=== PATIENT | female | born 1950 | race Caucasian/White ===

== ENCOUNTER 2016-04-25 06:36 | Inpatient (IN) | payer MEDICARE, BC ==
[~2016-04-25] VITALS: Ht 165.1 cm; Wt 93.0 kg
[~2016-04-25 06:36] MED LIST: HYDR10TA14 PO; LEVO112T2 PO; LOVA40TA2 PO
[2016-04-25] MEDS: NORMAL SALINE IV SCH ×5 (06:45→11:47)
[2016-04-25] MEDS ORDERED: CEFTRIAXONE 1GM IVPB FOR OMNI 50 ML IV ONE (07:15)
[2016-04-25] MEDS ORDERED: ACETAMINOPHEN 500 MG TABLET PO ONE (07:15)
[2016-04-25] MEDS ORDERED: VANCOMYCIN PER PHARMACY MC PRN (07:15)
[2016-04-25 07:19] LABS: BASO % 0 % (0-3); EOS % 2 % (0-3); HEMATOCRIT 48.9 % (36.0-47.0); HEMOGLOBIN 16.2 g/dL (12.0-15.5); LYMPH # 1.5 x10^3/uL (1.0-4.8); LYMPH % 12 % (24-48); MEAN CORPUSCULAR HEMOGLOBIN 31 pg (25-35); MEAN CORPUSCULAR HGB CONC 33 g/dL (31-37); MEAN CORPUSCULAR VOLUME 94 fL (79-100); MONO % 5 % (0-9); NEUT % 81 % (31-73); PLATELET COUNT 233 x10^3/uL (140-400); RED BLOOD COUNT 5.19 x10^6/uL (3.50-5.40); WHITE BLOOD COUNT 12.4 x10^3/uL (4.0-11.0)
--- NOTE | 2016-04-25 07:24 | PHYS DOC ---
Past Medical History Past Medical History: High Cholesterol, Hypertension, Hypothyroid, Renal Disease Additional Past Medical Histor: pituitary tumor Past Surgical History: Other Additional Past Surgical Histo: pituitary gland tumor removal Alcohol Use: None Drug Use: None Adult General Chief Complaint Chief Complaint: WEAKNESS/GENERALIZED HPI HPI Patient is a 66 year old female who presents with general weakness, vomiting, disorientation. Patient's contributes to history. She reports last night she started vomiting about 9 PM. She has been generally weak since then, and disoriented. He says the disorientation is common when she gets sick like this, and has happened multiple times in the past. She has not taken anything at home for symptoms. She denies any pain anywhere. She otherwise denies any acute complaints. Review of Systems Review of Systems ROS limited by disorientation Constitutional: General weakness, fever Respiratory: Denies cough or shortness of breath Cardiovascular: Denies chest pain GI: Nausea, vomiting. Denies abdominal pain, diarrhea Musculoskeletal: Denies back pain or joint pain Neurologic: Denies headache, focal weakness or sensory changes Current Medications Current Medications Current Medications Medications (Trade) Dose Ordered Sig/Vik Start Time Stop Time Status Last Admin Dose Admin Acetaminophen (Tylenol) 1,000 mg 1X ONCE 04/25/16 07:15 04/25/16 07:16 DC 04/25/16 07:15 1,000 MG Ceftriaxone Sodium 50 ml @ 100 mls/hr 1X ONCE 04/25/16 07:15 04/25/16 07:44 DC 04/25/16 07:16 100 MLS/HR Ondansetron HCl (Zofran) 4 mg 1X ONCE 04/25/16 07:30 04/25/16 07:31 DC Sodium Chloride (Iv Sodium Chloride 0.9% 1000ml Bag) 2,460 ml @ 2,460 mls/hr Q1H 04/25/16 07:00 04/25/16 07:15 2,460 MLS/HR Vancomycin HCl 1 each 1 each PRN DAILY PRN 04/25/16 07:15 UNV Vancomycin HCl/ Sodium Chloride (Iv Sodium Chloride 0.9% 500ml Bag) 500 ml @ 250 mls/hr 1X ONCE 04/25/16 08:00 04/25/16 09:59 Allergies Allergies Allergies Coded Allergies Type Severity Reaction Last Updated Verified No Known Drug Allergies 03/06/13 No Physical Exam Physical Exam Constitutional: Well developed, well nourished, non-toxic appearance HENT: Normocephalic, atraumatic, bilateral external ears normal Eyes: PERRL, EOMI, conjunctiva normal, no discharge Neck: Normal range of motion, no stridor, supple, negative [place]ern[place] and [place] Cardiovascular: Tachycardic, regular rhythm, no murmur Lungs & Thorax: Bilateral breath sounds clear to auscultation Abdomen: Bowel sounds normal, soft, non-distended, no TTP Skin: Hot to touch, dry, no erythema, no rash Extremities: No obvious deformity, no edema Neurologic: Alert and oriented to person and place only, GCS 14, CN II-XII grossly intact, strength symmetrical throughout, sensation to light touch intact throughout Current Patient Data Vital Signs Vital Signs Date Time Temp Pulse Resp B/P Pulse Ox O2 Delivery O2 Flow Rate FiO2 04/25/16 06:45 103.2 107 36 138/69 93 Room Air 103.2 Lab Values Laboratory Tests Test 04/25/16 06:55 04/25/16 07:10 Influenza Type A Antigen Negative (NEGATIVE) Influenza Type B Antigen Negative (NEGATIVE) White Blood Count 12.4x10^3/uL (4.0-11.0) H Red Blood Count 5.19x10^6/uL (3.50-5.40) Hemoglobin 16.2g/dL (12.0-15.5) H Hematocrit 48.9% (36.0-47.0) H Mean Corpuscular Volume 94fL (79-100) Mean Corpuscular Hemoglobin 31pg (25-35) Mean Corpuscular Hemoglobin Concent 33g/dL (31-37) Red Cell Distribution Width 13.0% (11.5-14.5) Platelet Count 233x10^3/uL (140-400) Neutrophils (%) (Auto) 81% (31-73) H Lymphocytes (%) (Auto) 12% (24-48) L Monocytes (%) (Auto) 5% (0-9) Eosinophils (%) (Auto) 2% (0-3) Basophils (%) (Auto) 0% (0-3) Neutrophils # (Auto) 10.0x10^3uL (1.8-7.7) H Lymphocytes # (Auto) 1.5x10^3/uL (1.0-4.8) Monocytes # (Auto) 0.6x10^3/uL (0.0-1.1) Eosinophils # (Auto) 0.3x10^3/uL (0.0-0.7) Basophils # (Auto) 0.0x10^3/uL (0.0-0.2) Sodium Level 144mmol/L (136-145) Potassium Level 3.5mmol/L (3.5-5.1) Chloride Level 106mmol/L (98-107) Carbon Dioxide Level 27mmol/L (21-32) Anion Gap 11 (6-14) Blood Urea Nitrogen 21mg/dL (7-20) H Creatinine 1.5mg/dL (0.6-1.0) H Estimated GFR (Cockcroft-Gault) 34.9 BUN/Creatinine Ratio 14 (6-20) Glucose Level 98mg/dL (70-99) Calcium Level 8.7mg/dL (8.5-10.1) Total Bilirubin 0.7mg/dL (0.2-1.0) Aspartate Amino Transferase (AST) 19U/L (15-37) Alanine Aminotransferase (ALT) 21U/L (14-59) Alkaline Phosphatase 89U/L (46-116) Total Protein 6.9g/dL (6.4-8.2) Albumin 3.3g/dL (3.4-5.0) L Albumin/Globulin Ratio 0.9 (1.0-1.7) L Laboratory Tests 04/25/16 07:10 Laboratory Tests 04/25/16 07:10 EKG EKG EKG (my read): sinus tachycardia, rate 115, normal axis, nonspecific ST changes Radiology/Procedures Radiology/Procedures CXR: IMPRESSION: No acute cardiopulmonary abnormality is detected. Course & Med Decision Making Course & Med Decision Making Pertinent Labs and Imaging studies reviewed. (See chart for details) Patient is 66 year old female who presents with fever and AMS. No clear source of infection on physical exam, however will cover empirically with abx. Will check EKG, CXR, labs, UA to evaluate. Sepsis dose fluids and zofran ordered. CXR results as above. Labs notable for mild leukocytosis. UA still pending. Discussed with Dr. Hammer, will admit under her care for further evaluation and treatment. Dragon Disclaimer Dragon Disclaimer This electronic medical record was generated, in whole or in part, using a voice recognition dictation system. Departure Departure Impression: Primary Impression: Altered mental status Additional Impression: SIRS (systemic inflammatory response syndrome) Disposition: 09 ADMITTED INPATIENT Admitting Physician: Thu Hammer Condition: GUARDED Referrals: RIA CLINE (PCP) Problem Qualifiers LUCILA NEWMAN MD Apr 25, 2016 07:24
[2016-04-25 07:25] LABS: OBC FLU VALID
--- NOTE | 2016-04-25 07:28 | RAD ---
Portable chest, 04/25/2016: History: Fever Comparison is made to a study from 03/06/2013. The heart size and pulmonary vascularity are normal. There is calcific plaquing of the aorta. No pulmonary infiltrates are seen. There is no evidence of pleural fluid. IMPRESSION: No acute cardiopulmonary abnormality is detected.
[2016-04-25] MEDS ORDERED: ONDANSETRON PF 4 MG/2 ML VIAL. IV ONE (07:30)
[2016-04-25 07:32] LABS: CALCIUM 8.7 mg/dL (8.5-10.1); CREATININE 1.5 mg/dL (0.6-1.0); GFR 34.9; POTASSIUM 3.5 mmol/L (3.5-5.1)
[2016-04-25 07:38] LABS: ALBUMIN 3.3 g/dL (3.4-5.0); ALBUMIN/GLOBULIN RATIO 0.9 (1.0-1.7); TOTAL BILIRUBIN 0.7 mg/dL (0.2-1.0); TOTAL PROTEIN 6.9 g/dL (6.4-8.2)
[2016-04-25] MEDS ORDERED: VANCOMYCIN 2 GM in IV NORMAL SALINE 500ML BAG 500 ML IV ONE (08:00)
[2016-04-25] MEDS ORDERED: ONDANSETRON PF 4 MG/2 ML VIAL. IV PRN ×2 (08:00→09:30)
--- NOTE | 2016-04-25 08:13 | ACF ---
Admission Forms Criteria MENTAL STATUS CHANGE Clinical Indications for Inpatient Care (Place 'X' for any and all applicable criteria): Ongoing inpatient care may be needed for ANY ONE of the following(1)(2)(3)(5)(6) : [X]I. Suspected serious etiology (eg, medical disorder, INVENTORY CHECKER event) of mental status change [ ]II. Danger to self or others not manageable at lower level of care [ ]III. Grave disability (eg, inability to perform self care necessary at lower level of care) [ ]IV. Agitation or inappropriate behavior interfering with care for primary condition (eg, attempting to discontinue lines or drains prematurely, unable to cooperate with respiratory care) [ ]V. Delirium [A] [D][E] as described by ANY ONE of the following(26): [ ]a) Delirium due to alcohol or sedative [F] withdrawal [ ]b) Delirium of uncertain etiology that has not responded to appropriate empiric treatment [ ]c) Delirium that prevents performance of a life-sustaining function (eg, feeding or hydrating oneself) [ ]. General contraindications and/or Inappropriate clinical situations for Observational Care in patients with Mental Status Change, when ANY ONE of the following is required: [ ]a) Prediction of prolongation of LOS based on ANY ONE of the following may be considered as a contraindication for observational care 2, 3, 4, 5, 6, 7, 8, 9, 10, 11 [ ]i) Age > 65 yrs. [ ]ii) Patient arriving by ambulance [ ]iii) Patient with high acuity [ ]iv) Patient requiring vital sign monitoring [ ]v) Patient on IV medication [ ]b) Systolic blood pressures 180mmHg 3,12 [ ]c) Patient with altered mental status including delirium and other alteration of consciousness, (3) [ ]d) Patient whose discharge disposition will be to a [facility] home or rehabilitation home should not be managed in Emergency Department Observation Unit. CMS rule requires 3 days hospital stay before such placement.3,13 [ ]e) Patient with failure to thrive due to broad array of etiologies 3,16,17 [ ]f) Inability to ambulate 3,14 Extended stay beyond goal length of stay for the primary condition may be needed until ALL of the following are present(3)(5): [ ]a) Underlying medical etiology of mental status change is absent, or has been established and adequately treated [ ]b) Danger to self or others is absent or manageable at lower level of care. [ ]c) Behavior crisis management, including physical or chemical restraints, is not required or available at lower level of car [ ]d) Substance or alcohol withdrawal is absent or manageable at lower level of care. [ ]e) Behavioral symptoms (eg, agitation, somnolence, inappropriate behavior) are absent, or are manageable at lower level of care. The original [facility] content created by [facility] has been revised. The portions of the content which have been revised are identified through the use of italic text or in bold, and [facility] has neither reviewed nor approved the modified material. All other unmodified content is copyright [facility]. Please see references footnoted in the original [facility] edition 2016 Admission Criteria Met?: Yes LINK ARANA Apr 25, 2016 08:13
--- NOTE | 2016-04-25 08:15 | EKG ---
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
[2016-04-25] MEDS ORDERED: AMLO5TAB2 PO (09:48)
[2016-04-25] MEDS ORDERED: MOME17SP NS (09:50)
[2016-04-25] MEDS ORDERED: ESTR10TA VG (09:50)
[2016-04-25 09:57] VITALS: BP 102/53
[2016-04-25] MEDS ORDERED: LEVOTHYROXINE 112 MCG TABLET PO SCH (10:00)
[2016-04-25 11:00] VITALS: BP 111/54
[2016-04-25] MEDS: HYDROCORTISONE 10 MG TABLET PO SCH ×2 (11:45→20:52)
--- NOTE | 2016-04-25 13:40 | PDOC1 ---
History and Physical Date of Admission Date of Admission DATE: 04/25/16 TIME: 13:32 Identification/Chief Complaint Chief Complaint diarrhea last night Source Source: Caregiver, Chart review, Patient History of Present Illness History of Present Illness Very pleasant 66 y.o female, acute onset watery stools last night after eating subway and rotisserie chicken. NObody ate the same, started feeling sick, abd pain, emesis, diarrhea., 3x now, no fevers at home but 103 temp at ER. lactate 3 plus on arrival, VS ok. WBC 13, CRea 1.3 Pt hx hypopituitarism, on supplements of hydrocortisone, and synthroid CXR ok Was not interested in lunch tray today Flu is neg UA pending Stool sent already Past Medical History Cardiovascular: HTN, Hyperlipidemia Pulmonary: Bronchitis CENTRAL NERVOUS SYSTEM: Other (hypopit) GI: No pertinent hx Heme/Onc: No pertinent hx Psych: No pertinent hx Infectious disease: No pertinent hx ENT: No pertinent hx Renal/: No pertinent hx Endocrine: Hypothyroidism, Other Past Surgical History Past Surgical History: Other (pit tumor mass removal) Family History Family History: No Significant Social History Smoke: No ALCOHOL: none Drugs: None Current Problem List Problem List Problems Medical Problems: (1) Altered mental status Status: Acute (2) Mental status change Status: Acute (3) SIRS (systemic inflammatory response syndrome) Status: Acute Problems: Current Medications Current Medications Current Medications Sodium Chloride (Iv Sodium Chloride 0.9% 1000ml Bag) 2,460 ml @ 2,460 mls/hr Q1H IV Last administered on 04/25/16 11:47; Start 04/25/16 at 07:00 Acetaminophen (Tylenol) 1,000 mg 1X ONCE PO Last administered on 04/25/16 07: 15; Start 04/25/16 at 07:15; Stop 04/25/16 at 07:16; Status DC Vancomycin HCl 1 each 1 each PRN DAILY PRN MC SEE COMMENTS Last administered on 04/25/16 13:08; Start 04/25/16 at 07:15 Ceftriaxone Sodium 50 ml @ 100 mls/hr 1X ONCE IV Last administered on 07:16; Start 04/25/16 at 07:15; Stop 04/25/16 at 07:44; Status DC Vancomycin HCl/ Sodium Chloride (Iv Sodium Chloride 0.9% 500ml Bag) 500 ml @ 250 mls/hr 1X ONCE IV Last administered on 04/25/16 07:56; Start 04/25/16 at 08 :00; Stop 04/25/16 at 09:59; Status DC Ondansetron HCl (Zofran) 4 mg 1X ONCE IV ; Start 04/25/16 at 07:30; Stop at 07:31; Status DC Ondansetron HCl (Zofran) 4 mg PRN Q8HRS PRN IV NAUSEA/VOMITING; Start 04/25/16 at 08:00; Stop 04/25/16 at 09:32; Status DC Acetaminophen (Tylenol) 650 mg PRN Q4HRS PRN PO FEVER; Start 04/25/16 at 08:00; Stop 04/26/16 at 07:59 Ondansetron HCl (Zofran) 4 mg PRN Q6HRS PRN IV NAUSEA/VOMITING; Start 04/25/16 at 09:30 Hydrocortisone (Cortef) 10 mg BID PO Last administered on 04/25/16 11:45; Start 04/25/16 at 10:00 Levothyroxine Sodium (Synthroid) 112 mcg DAILY07 PO Last administered on 11:45; Start 04/25/16 at 10:00 Atorvastatin Calcium 10 mg 10 mg QHS PO ; Start 04/25/16 at 21:00 Vancomycin HCl/ Sodium Chloride (Iv Sodium Chloride 0.9% 500ml Bag) 500 ml @ 250 mls/hr Q24H IV ; Start 04/26/16 at 08:00 Vancomycin HCl 1 each 1X ONCE MC ; Start 04/27/16 at 07:30; Stop 04/27/16 at 07 :31 Active Scripts Active Reported Nasonex (Mometasone Furoate) 17 Gm [place].pump 2 Sprays NS PRN PRN Vagifem (Estradiol) 10 Mcg Tablet 10 Mcg VG TWICE WEEKLY Amlodipine Besylate 5 Mg Tablet 5 Mg PO DAILY Synthroid (Levothyroxine Sodium) 112 Mcg Tablet 100 Mcg PO DAILY Hydrocortisone 10 Mg Tablet 10 Mg PO BID Lovastatin 40 Mg Tablet 40 Mg PO DAILY Allergies Allergies: Coded Allergies: No Known Drug Allergies (Unverified , 03/06/13) ROS General: YES: Other (weak) PSYCHOLOGICAL ROS: No: Anxiety, Behavioral Disorder, Concentration difficultie , Decreased libido, Depression, Disorientation, Hallucinations, Hostility, Irritablity, Memory difficulties, Mood Swings, Obsessive thoughts, Other, Physical abuse, Sexual abuse, Sleep disturbances, Suicidal ideation Eyes: No Blurry vision, No Decreased vision, No Double vision, No Dry eyes, No Excessive tearing, No Eye Pain, No Itchy Eyes, No Loss of vision, No Other, No Photophobia, No Scotomata, No Uses contacts, No Uses glasses HEENT: No: Epistaxis, Heacaches, Hearing change, Nasal congestion, Nasal discharge, Oral lesions, Other, Sinus pain, Sneezing, Snoring, Sore Throat, Tinnitus, Vertigo, Visual Changes, Vocal changes ALLERGY AND IMMUNOLOGY: No: Hives, Insect Bite Sensitivity, Itchy/Watery Eyes, Nasal Congestion, Other, Post Nasal Drip, Seasonal Allergies Hematological and Lymphatic: No: Bleeding Problems, Blood Clots, Blood Transfusions, Brusing, Night Sweats, Other, Pallor, Swollen Lymph Nodes ENDOCRINE: No: Breast Changes, Galactorrhea, Hair Pattern Changes, Hot Flashes , Malaise/lethargy, Mood Swings, Other, Palpitations, Polydipsia/polyuria, Skin Changes, Temperature Intolerance, Unexpected Weight Changes Breast: No New/Changing Breast Lumps, No Nipple changes, No Nipple discharge, No Other Respiratory: No: Cough, Hemoptysis, Orthopnea, Other, Pleuritic Pain, SOB with excertion, Shortness of breath, Sputum Changes, Stridor, Tachypnea, Wheezing Cardiovascular: No Chest Pain, No Edema, No Lt Headedness, No Orthopnea, No Other, No Palpitations, No Paroxysmal Noc. Dyspnea Gastrointestinal: Yes Abdominal Pain, Yes Diarrhea, Yes Nausea, Yes Vomiting Genitourinary: No , No , No , No , No , No , No , No Discharge, No Dysuria, No Flank Pain, No Frequency, No Hematuria, No Incontinence, No Other, No Pain, No Retention, No Urgency Musculoskeletal: No Gait Disturbance, No Joint Pain, No Joint Stiffness, No Joint Swelling, No Muscle Pain, No Muscular Weakness, No Other, No Pain In:, No Swelling In: Neurological: No Behavorial Changes, No Bowel/Bladder ControlChng, No Confusion , No Dizziness, No Gait Disturbance, No Headaches, No Impaired Coord/balance, No Memory Loss, No Numbness/Tingling, No Other, No Seizures, No Speech Problems , No Tremors, No Visual Changes, No Weakness Skin: No Acne, No Dry Skin, No Eczema, No Hair Changes, No Lumps, No Mole Changes, No Mottling, No Nail Changes, No Other, No Pruritus, No Rash, No Skin Lesion Changes Physical Exam General: Alert, Oriented X3, Cooperative, No acute distress HEENT: Atraumatic, PERRLA Lungs: Clear to auscultation, Normal air movement Heart: S1S2, RRR, no thrills, no rubs, no gallops Cardiovascular: S1, S2 Breasts: Normal Abdomen: Soft, Other (hyperactive BS) Male Genitals Exam: normal genitalia Extremities: No clubbing Skin: No rashes, No breakdown, No significant lesion Neuro: Normal gait, Normal speech, Strength at 5/5 X4 ext, Normal tone, Sensation intact, Cranial nerves 3-12 NL, Reflexes 2+ Psych/Mental Status: Mental status NL, Mood NL Vitals Vitals Vital Signs Date Time Temp Pulse Resp B/P Pulse Ox O2 Delivery O2 Flow Rate FiO2 04/25/16 11:00 99.5 84 16 111/54 96 Room Air 99.5 Labs Labs Laboratory Tests Test 04/25/16 06:55 04/25/16 07:10 04/25/16 08:55 Influenza Type A Antigen Negative (NEGATIVE) Influenza Type B Antigen Negative (NEGATIVE) White Blood Count 12.4x10^3/uL (4.0-11.0) Red Blood Count 5.19x10^6/uL (3.50-5.40) Hemoglobin 16.2g/dL (12.0-15.5) Hematocrit 48.9% (36.0-47.0) Mean Corpuscular Volume 94fL (79-100) Mean Corpuscular Hemoglobin 31pg (25-35) Mean Corpuscular Hemoglobin Concent 33g/dL (31-37) Red Cell Distribution Width 13.0% (11.5-14.5) Platelet Count 233x10^3/uL (140-400) Neutrophils (%) (Auto) 81% (31-73) Lymphocytes (%) (Auto) 12% (24-48) Monocytes (%) (Auto) 5% (0-9) Eosinophils (%) (Auto) 2% (0-3) Basophils (%) (Auto) 0% (0-3) Neutrophils # (Auto) 10.0x10^3uL (1.8-7.7) Lymphocytes # (Auto) 1.5x10^3/uL (1.0-4.8) Monocytes # (Auto) 0.6x10^3/uL (0.0-1.1) Eosinophils # (Auto) 0.3x10^3/uL (0.0-0.7) Basophils # (Auto) 0.0x10^3/uL (0.0-0.2) Sodium Level 144mmol/L (136-145) Potassium Level 3.5mmol/L (3.5-5.1) Chloride Level 106mmol/L (98-107) Carbon Dioxide Level 27mmol/L (21-32) Anion Gap 11 (6-14) Blood Urea Nitrogen 21mg/dL (7-20) Creatinine 1.5mg/dL (0.6-1.0) Estimated GFR (Cockcroft-Gault) 34.9 BUN/Creatinine Ratio 14 (6-20) Glucose Level 98mg/dL (70-99) Lactic Acid Level 3.3mmol/L (0.4-2.0) 1.9mmol/L (0.4-2.0) Calcium Level 8.7mg/dL (8.5-10.1) Total Bilirubin 0.7mg/dL (0.2-1.0) Aspartate Amino Transf (AST/SGOT) 19U/L (15-37) Alanine Aminotransferase (ALT/SGPT) 21U/L (14-59) Alkaline Phosphatase 89U/L (46-116) Total Protein 6.9g/dL (6.4-8.2) Albumin 3.3g/dL (3.4-5.0) Albumin/Globulin Ratio 0.9 (1.0-1.7) Thyroid Stimulating Hormone (TSH) 0.121uIU/mL (0.358-3.74) Laboratory Tests Test 04/25/16 06:55 04/25/16 07:10 04/25/16 08:55 Influenza Type A Antigen Negative (NEGATIVE) Influenza Type B Antigen Negative (NEGATIVE) White Blood Count 12.4x10^3/uL (4.0-11.0) Red Blood Count 5.19x10^6/uL (3.50-5.40) Hemoglobin 16.2g/dL (12.0-15.5) Hematocrit 48.9% (36.0-47.0) Mean Corpuscular Volume 94fL (79-100) Mean Corpuscular Hemoglobin 31pg (25-35) Mean Corpuscular Hemoglobin Concent 33g/dL (31-37) Red Cell Distribution Width 13.0% (11.5-14.5) Platelet Count 233x10^3/uL (140-400) Neutrophils (%) (Auto) 81% (31-73) Lymphocytes (%) (Auto) 12% (24-48) Monocytes (%) (Auto) 5% (0-9) Eosinophils (%) (Auto) 2% (0-3) Basophils (%) (Auto) 0% (0-3) Neutrophils # (Auto) 10.0x10^3uL (1.8-7.7) Lymphocytes # (Auto) 1.5x10^3/uL (1.0-4.8) Monocytes # (Auto) 0.6x10^3/uL (0.0-1.1) Eosinophils # (Auto) 0.3x10^3/uL (0.0-0.7) Basophils # (Auto) 0.0x10^3/uL (0.0-0.2) Sodium Level 144mmol/L (136-145) Potassium Level 3.5mmol/L (3.5-5.1) Chloride Level 106mmol/L (98-107) Carbon Dioxide Level 27mmol/L (21-32) Anion Gap 11 (6-14) Blood Urea Nitrogen 21mg/dL (7-20) Creatinine 1.5mg/dL (0.6-1.0) Estimated GFR (Cockcroft-Gault) 34.9 BUN/Creatinine Ratio 14 (6-20) Glucose Level 98mg/dL (70-99) Lactic Acid Level 3.3mmol/L (0.4-2.0) 1.9mmol/L (0.4-2.0) Calcium Level 8.7mg/dL (8.5-10.1) Total Bilirubin 0.7mg/dL (0.2-1.0) Aspartate Amino Transf (AST/SGOT) 19U/L (15-37) Alanine Aminotransferase (ALT/SGPT) 21U/L (14-59) Alkaline Phosphatase 89U/L (46-116) Total Protein 6.9g/dL (6.4-8.2) Albumin 3.3g/dL (3.4-5.0) Albumin/Globulin Ratio 0.9 (1.0-1.7) Thyroid Stimulating Hormone (TSH) 0.121uIU/mL (0.358-3.74) VTE Prophylaxis Ordered VTE Prophylaxis Devices: Yes VTE Pharmacological Prophylaxi: Yes Assessment/Plan Assessment/Plan 1. AGE 2. SIRS POA, no sepsis 3, Hypopituitarism on hormone supplements 4. NIRMALA sec to GI loss 5. Dyslipidemia on statin 6. HTN, controlled PLAn: STool studies IVF NS 150cc.hr REg diet when able to PT/OT Immodium if c diff neg CBC and bMP fredrick Resume home meds Nilay pt and RN and ULYSSES DEL CID MD Apr 25, 2016 13:39
[2016-04-25 15:00] VITALS: BP 138/66
[2016-04-25] MEDS: AMLODIPINE BESYLATE 5 MG TABLET PO SCH (15:18)
[2016-04-25] MEDS: IV NORMAL SALINE 1000ML BAG 1,000 ML IV SCH ×2 (15:20→18:12)
[2016-04-25 18:36] VITALS: BP 138/59
[2016-04-25] MEDS: ATORVASTATIN CALCIUM 10 MG TABLET. PO SCH (20:52)
[2016-04-25] MEDS: ACETAMINOPHEN 325 MG TABLET. PO PRN (20:52)
[2016-04-25 23:10] VITALS: BP 115/57
[2016-04-26] MEDS: LOPERAMIDE 2 MG CAPSULE PO PRN ×3 (01:23→06:03)
[2016-04-26] MEDS: IV NORMAL SALINE 1000ML BAG 1,000 ML IV SCH ×3 (01:24→21:04)
[2016-04-26 03:30] VITALS: BP 129/68
[2016-04-26] MEDS: ACETAMINOPHEN 325 MG TABLET. PO PRN (03:42)
[2016-04-26 05:20] LABS: BASO % 0 % (0-3); EOS % 1 % (0-3); HEMATOCRIT 40.8 % (36.0-47.0); HEMOGLOBIN 13.6 g/dL (12.0-15.5); LYMPH # 1.3 x10^3/uL (1.0-4.8); LYMPH % 12 % (24-48); MEAN CORPUSCULAR HEMOGLOBIN 31 pg (25-35); MEAN CORPUSCULAR HGB CONC 33 g/dL (31-37); MEAN CORPUSCULAR VOLUME 93 fL (79-100); MONO % 4 % (0-9); NEUT % 83 % (31-73); PLATELET COUNT 168 x10^3/uL (140-400); RED BLOOD COUNT 4.41 x10^6/uL (3.50-5.40); WHITE BLOOD COUNT 11.2 x10^3/uL (4.0-11.0)
[2016-04-26 05:24] LABS: CALCIUM 7.9 mg/dL (8.5-10.1); CREATININE 1.1 mg/dL (0.6-1.0); GFR 49.8; POTASSIUM 3.4 mmol/L (3.5-5.1)
[2016-04-26] MEDS: LEVOTHYROXINE 112 MCG TABLET PO SCH (06:03)
[2016-04-26 07:00] VITALS: BP 106/53
[2016-04-26] MEDS ORDERED: VANCOMYCIN 1.5 GM in IV NORMAL SALINE 500ML BAG 500 ML IV SCH (08:00)
[2016-04-26] MEDS: HYDROCORTISONE 10 MG TABLET PO SCH ×2 (08:12→21:04)
[2016-04-26] MEDS: AMLODIPINE BESYLATE 5 MG TABLET PO SCH (08:13)
[2016-04-26] MEDS ORDERED: POTASSIUM CHLORIDE 20 MEQ TABLET.ER. PO ONE (09:00)
[2016-04-26] MEDS ORDERED: FLUTICASONE 50MCG/NASAL SPRAY 16GM BOTTLE. NS PRN (09:00)
--- NOTE | 2016-04-26 10:50 | PDOC3 ---
Discharge Summary Visit Information Date of Admission: Apr 25, 2016 Date of Discharge: Apr 26, 2016 Final Diagnosis Problems Medical Problems: (1) Acute gastroenteritis Status: Acute (2) Altered mental status Status: Acute (3) Mental status change Status: Acute (4) SIRS (systemic inflammatory response syndrome) Status: Acute Brief Hospital Course Allergies Allergies Coded Allergies Type Severity Reaction Last Updated Verified No Known Drug Allergies 03/06/13 No Vital Signs Vital Signs Date Time Temp Pulse Resp B/P Pulse Ox O2 Delivery O2 Flow Rate FiO2 04/26/16 08:13 82 106/53 04/26/16 07:00 99.8 16 96 Room Air 99.8 Lab Results Laboratory Tests Test 04/25/16 06:55 04/25/16 07:10 04/25/16 08:55 04/25/16 09:50 Influenza Type A Antigen Negative (NEGATIVE) Influenza Type B Antigen Negative (NEGATIVE) White Blood Count 12.4x10^3/uL (4.0-11.0) Red Blood Count 5.19x10^6/uL (3.50-5.40) Hemoglobin 16.2g/dL (12.0-15.5) Hematocrit 48.9% (36.0-47.0) Mean Corpuscular Volume 94fL (79-100) Mean Corpuscular Hemoglobin 31pg (25-35) Mean Corpuscular Hemoglobin Concent 33g/dL (31-37) Red Cell Distribution Width 13.0% (11.5-14.5) Platelet Count 233x10^3/uL (140-400) Neutrophils (%) (Auto) 81% (31-73) Lymphocytes (%) (Auto) 12% (24-48) Monocytes (%) (Auto) 5% (0-9) Eosinophils (%) (Auto) 2% (0-3) Basophils (%) (Auto) 0% (0-3) Neutrophils # (Auto) 10.0x10^3uL (1.8-7.7) Lymphocytes # (Auto) 1.5x10^3/uL (1.0-4.8) Monocytes # (Auto) 0.6x10^3/uL (0.0-1.1) Eosinophils # (Auto) 0.3x10^3/uL (0.0-0.7) Basophils # (Auto) 0.0x10^3/uL (0.0-0.2) Sodium Level 144mmol/L (136-145) Potassium Level 3.5mmol/L (3.5-5.1) Chloride Level 106mmol/L (98-107) Carbon Dioxide Level 27mmol/L (21-32) Anion Gap 11 (6-14) Blood Urea Nitrogen 21mg/dL (7-20) Creatinine 1.5mg/dL (0.6-1.0) Estimated GFR (Cockcroft-Gault) 34.9 BUN/Creatinine Ratio 14 (6-20) Glucose Level 98mg/dL (70-99) Lactic Acid Level 3.3mmol/L (0.4-2.0) 1.9mmol/L (0.4-2.0) Calcium Level 8.7mg/dL (8.5-10.1) Total Bilirubin 0.7mg/dL (0.2-1.0) Aspartate Amino Transf (AST/SGOT) 19U/L (15-37) Alanine Aminotransferase (ALT/SGPT) 21U/L (14-59) Alkaline Phosphatase 89U/L (46-116) Total Protein 6.9g/dL (6.4-8.2) Albumin 3.3g/dL (3.4-5.0) Albumin/Globulin Ratio 0.9 (1.0-1.7) Thyroid Stimulating Hormone (TSH) 0.121uIU/mL (0.358-3.74) Clostridium difficile Toxin (PCR) Negative (Negative) Test 04/26/16 05:00 White Blood Count 11.2x10^3/uL (4.0-11.0) Red Blood Count 4.41x10^6/uL (3.50-5.40) Hemoglobin 13.6g/dL (12.0-15.5) Hematocrit 40.8% (36.0-47.0) Mean Corpuscular Volume 93fL (79-100) Mean Corpuscular Hemoglobin 31pg (25-35) Mean Corpuscular Hemoglobin Concent 33g/dL (31-37) Red Cell Distribution Width 13.0% (11.5-14.5) Platelet Count 168x10^3/uL (140-400) Neutrophils (%) (Auto) 83% (31-73) Lymphocytes (%) (Auto) 12% (24-48) Monocytes (%) (Auto) 4% (0-9) Eosinophils (%) (Auto) 1% (0-3) Basophils (%) (Auto) 0% (0-3) Neutrophils # (Auto) 9.3x10^3uL (1.8-7.7) Lymphocytes # (Auto) 1.3x10^3/uL (1.0-4.8) Monocytes # (Auto) 0.5x10^3/uL (0.0-1.1) Eosinophils # (Auto) 0.1x10^3/uL (0.0-0.7) Basophils # (Auto) 0.0x10^3/uL (0.0-0.2) Sodium Level 140mmol/L (136-145) Potassium Level 3.4mmol/L (3.5-5.1) Chloride Level 106mmol/L (98-107) Carbon Dioxide Level 21mmol/L (21-32) Anion Gap 13 (6-14) Blood Urea Nitrogen 12mg/dL (7-20) Creatinine 1.1mg/dL (0.6-1.0) Estimated GFR (Cockcroft-Gault) 49.8 Glucose Level 84mg/dL (70-99) Calcium Level 7.9mg/dL (8.5-10.1) Laboratory Tests Test 04/26/16 05:00 White Blood Count 11.2x10^3/uL (4.0-11.0) Red Blood Count 4.41x10^6/uL (3.50-5.40) Hemoglobin 13.6g/dL (12.0-15.5) Hematocrit 40.8% (36.0-47.0) Mean Corpuscular Volume 93fL (79-100) Mean Corpuscular Hemoglobin 31pg (25-35) Mean Corpuscular Hemoglobin Concent 33g/dL (31-37) Red Cell Distribution Width 13.0% (11.5-14.5) Platelet Count 168x10^3/uL (140-400) Neutrophils (%) (Auto) 83% (31-73) Lymphocytes (%) (Auto) 12% (24-48) Monocytes (%) (Auto) 4% (0-9) Eosinophils (%) (Auto) 1% (0-3) Basophils (%) (Auto) 0% (0-3) Neutrophils # (Auto) 9.3x10^3uL (1.8-7.7) Lymphocytes # (Auto) 1.3x10^3/uL (1.0-4.8) Monocytes # (Auto) 0.5x10^3/uL (0.0-1.1) Eosinophils # (Auto) 0.1x10^3/uL (0.0-0.7) Basophils # (Auto) 0.0x10^3/uL (0.0-0.2) Sodium Level 140mmol/L (136-145) Potassium Level 3.4mmol/L (3.5-5.1) Chloride Level 106mmol/L (98-107) Carbon Dioxide Level 21mmol/L (21-32) Anion Gap 13 (6-14) Blood Urea Nitrogen 12mg/dL (7-20) Creatinine 1.1mg/dL (0.6-1.0) Estimated GFR (Cockcroft-Gault) 49.8 Glucose Level 84mg/dL (70-99) Calcium Level 7.9mg/dL (8.5-10.1) Brief Hospital Course Ms. Avendano is a 66 old [sex] who presented with [ ] Very pleasant 66 y.o female, acute onset watery stools last night after eating subway and rotisserie chicken. NObody ate the same, started feeling sick, abd pain, emesis, diarrhea., 3x now, no fevers at home but 103 temp at ER. lactate 3 plus on arrival, VS ok. WBC 13, CRea 1.3 Pt hx hypopituitarism, on supplements of hydrocortisone, and synthroid CXR ok COURSE: FLU and c diff neg CERa down to 1.1 after IVF MIldly low K bec still on liquid diet WBC down to 11 If cont to do godd, ok to dc today with no antibiotics, Dc vanc Dec rate iVF Encourage OFI Imodium prn PT seen and examined Dw RN and pt and Discharge Information Scheduled Amlodipine Besylate (Amlodipine Besylate) 5 MG PO DAILY (Reported) Estradiol (Vagifem) 10 MCG VG TWICE WEEKLY (Reported) Hydrocortisone (Hydrocortisone) 10 MG PO BID (Reported) Levothyroxine Sodium (Synthroid) 100 MCG PO DAILY (Reported) Lovastatin (Lovastatin) 40 MG PO DAILY (Reported) Scheduled PRN Mometasone Furoate (Nasonex) 2 SPRAYS NS PRN PRN PRN ALLERGIES (Reported) ULYSSES DEL CID MD Apr 26, 2016 10:50
[2016-04-26 11:00] VITALS: BP 121/60
[2016-04-26] MEDS ORDERED: ACETAMINOPHEN 325 MG TABLET. PO PRN (11:30)
[2016-04-26 15:00] VITALS: BP 124/61
--- NOTE | 2016-04-26 17:45 | PDOC ---
Provider Note Provider Note Fevers continue Hold dc Consult ID Start IV levaquin (GI diarrhea) BC and CBC ULYSSES Zuluaga MD Apr 26, 2016 17:45
[2016-04-26 19:00] VITALS: BP 161/62
[2016-04-26] MEDS: ATORVASTATIN CALCIUM 10 MG TABLET. PO SCH (21:04)
[2016-04-26 23:00] VITALS: BP 126/53
[2016-04-27 03:00] VITALS: BP 130/60
[2016-04-27 04:51] LABS: BASO % 0 % (0-3); EOS % 3 % (0-3); HEMATOCRIT 37.9 % (36.0-47.0); HEMOGLOBIN 12.7 g/dL (12.0-15.5); LYMPH # 1.7 x10^3/uL (1.0-4.8); LYMPH % 17 % (24-48); MEAN CORPUSCULAR HEMOGLOBIN 31 pg (25-35); MEAN CORPUSCULAR HGB CONC 33 g/dL (31-37); MEAN CORPUSCULAR VOLUME 94 fL (79-100); MONO % 8 % (0-9); NEUT % 72 % (31-73); PLATELET COUNT 136 x10^3/uL (140-400); RED BLOOD COUNT 4.05 x10^6/uL (3.50-5.40); WHITE BLOOD COUNT 9.8 x10^3/uL (4.0-11.0)
[2016-04-27 05:28] LABS: CALCIUM 8.2 mg/dL (8.5-10.1); CREATININE 0.9 mg/dL (0.6-1.0); GFR 62.8; POTASSIUM 3.8 mmol/L (3.5-5.1)
[2016-04-27] MEDS ORDERED: IOHEXOL 240 MG/ML 50ML VIAL. PO ONE (06:15)
[2016-04-27] MEDS ORDERED: IOHEXOL 300 MG/ML 75 ML VIAL IV ONE (06:15)
[2016-04-27] MEDS ORDERED: CONTRAST GIVEN MC PRN (06:15)
[2016-04-27] MEDS: LEVOTHYROXINE 112 MCG TABLET PO SCH (06:33)
[2016-04-27 07:00] VITALS: BP 129/71
[2016-04-27] MEDS: HYDROCORTISONE 10 MG TABLET PO SCH (08:40)
[2016-04-27] MEDS: LOPERAMIDE 2 MG CAPSULE PO PRN (08:41)
[2016-04-27] MEDS: AMLODIPINE BESYLATE 5 MG TABLET PO SCH (08:41)
[2016-04-27] MEDS: IV NORMAL SALINE 1000ML BAG 1,000 ML IV SCH ×2 (08:41→12:18)
--- NOTE | 2016-04-27 09:39 | RAD ---
Exam performed: CT abdomen pelvis with oral contrast. History: Fever and extreme diarrhea. Date of service: 04/27/16. Comparison: None available Technique: Contiguous helical acquisitions are obtained through the abdomen and pelvis without IV contrast. Oral contrast was given. Sagittal and coronal reformatted images are obtained and reviewed. Findings: Right greater than left bibasal atelectasis with small pleural effusions. The visualized heart is normal. Lack of IV contrast limits evaluation of abdominal viscera, however the liver, spleen and pancreas appear normal. Gallbladder is distended. Both adrenal glands and bilateral kidneys are normal in size. Probable right renal cyst. No hydronephrosis or nephrolithiasis. Aorta is normal in caliber demonstrating diffuse atheromatous calcification. The small and large bowel loops are nondilated and unremarkable. Appendix is not seen. Questionable inflammatory stranding in both lower abdomen. No abnormal fluid collection The urinary bladder is partially distended. The uterus is anteverted. No adnexal masses seen. No free or focal fluid collections or pelvic lymphadenopathy is identified. Sigmoid diverticulosis without acute diverticulitis. Interrogation of bone windows demonstrates mild spondylotic changes and degenerative disc disease. Impression: No acute intra-abdominal or pelvic process detected. Probable renal cysts. PQRS Compliance Statement: One or more of the following individualized dose reduction techniques were utilized for this examination: 1. Automated exposure control 2. Adjustment of the mA and/or kV according to patient size 3. Use of iterative reconstruction technique
[2016-04-27 11:00] VITALS: BP 134/65
--- NOTE | 2016-04-27 15:00 | PDOC3 ---
Discharge Summary [facility] Date of Admission: Apr 25, 2016 Discharge Date: Apr 27, 2016 Admitting Diagnosis 1 fever, viral infection likely 2. gastroenteritis 2/2 viral vs. food toxin hld htn hypothyroidism SIRS wo 1 Problems: Final Diagnosis Problems Medical Problems: (1) Acute gastroenteritis Status: Acute (2) Altered mental status Status: Acute (3) Mental status change Status: Acute (4) SIRS (systemic inflammatory response syndrome) Status: Acute Brief Hospital Course Ms. Avendano is a 66 old F, pretty health, comes for abd pain ,N/V, diarrhea, resolved. fever yesterday, no other complain. wbc normal. Pt feels good. dc home ask her to come to ER if cont fever for 2 days for feeling sick. dc time 35min General: Alert, Oriented X3, Cooperative, No acute distress HEENT: Atraumatic, PERRLA Lungs: Clear to auscultation, Normal air movement Heart: S1S2, RRR, no thrills, no rubs, no gallops Cardiovascular: S1, S2 Breasts: Normal Abdomen: Soft, Other (hyperactive BS) Male Genitals Exam: normal genitalia Extremities: No clubbing Skin: No rashes, No breakdown, No significant lesion Neuro: Normal gait, Normal speech, Strength at 5/5 X4 ext, Normal tone, Sensation intact, Cranial nerves 3-12 NL, Reflexes 2+ Psych/Mental Status: Mental status NL, Mood NL Problems: Disposition home CONDITION AT DISCHARGE: Improved Diet regular Scheduled Amlodipine Besylate (Amlodipine Besylate) 5 MG PO DAILY (Reported) Estradiol (Vagifem) 10 MCG VG TWICE WEEKLY (Reported) Hydrocortisone (Hydrocortisone) 10 MG PO BID (Reported) Levothyroxine Sodium (Synthroid) 100 MCG PO DAILY (Reported) Lovastatin (Lovastatin) 40 MG PO DAILY (Reported) Scheduled PRN Mometasone Furoate (Nasonex) 2 SPRAYS NS PRN PRN PRN ALLERGIES (Reported) Follow Up pcp in2 weeks SANGEETHA SHAH MD Apr 27, 2016 14:59
== END 2016-04-27 13:30 | disposition home or self-care (01) | DRG 917 ==
LOC: ER 06:36 → 6 SOUTH 07:50
PROVIDERS: ADMIT Internal Medicine; ATTEND Internal Medicine
DX: T62.91XA Toxic effect of unspecified noxious substance eaten as food, accidental (unintentional), initial encounter (principal); R65.11 Systemic inflammatory response syndrome (SIRS) of non-infectious origin with acute organ dysfunction; N17.9 Acute kidney failure, unspecified; E23.0 Hypopituitarism; A08.4 Viral intestinal infection, unspecified; E03.9 Hypothyroidism, unspecified; E78.00 Pure hypercholesterolemia, unspecified; E78.5 Hyperlipidemia, unspecified; I10 Essential (primary) hypertension; K52.9 Noninfective gastroenteritis and colitis, unspecified
CPT/HCPCS: 36415; 71010; 74176; 80048; 80053; 83605; 84443; 85027; 87040; 87324; 87804; 93005; 96365; 96366; 96368; J0690; J1956; J3370; J7030; J7040; Q9966; 99285-25